=== PATIENT | female | born 1955 | race Two or more races ===

== ENCOUNTER 2019-03-18 09:11 | Inpatient (IN) | payer SELFPAY ==
[~2019-03-18] VITALS: Ht 152.4 cm; Wt 52.5 kg
[2019-03-18 10:08] LABS: Basophils # (auto) 0.1 uL; Basophils % (auto) 0.4 % (0.0-2.0); Eosinophils # (auto) 0 uL; Eosinophils % (auto) 0.1 % (0.0-7.0); Hematocrit 39.4 % (36.0-46.0); Hemoglobin 13.4 g/dL (12.2-16.2); Lymphocytes # (auto) 1.2 uL; Lymphocytes % (auto) 7.3 % (10.0-50.0); Mean Corpuscular Hemoglobin 30.3 pg (28.0-32.0); Mean Corpuscular Volume 89.1 fL (80.0-100.0); Monocytes # (auto) 1.1 uL; Monocytes % (auto) 7.2 % (0.0-12.0); Neutrophils # (auto) 13.5 uL; Nucleated Red Blood Cells % 0.1 %; Platelet Count (auto) 240 10^3/uL (140-450); Red Blood Cells 4.42 10^6/uL (4.0-5.20); Red Cell Distribution Width 14.4 % (11.8-14.3); White Blood Cell 15.9 10^3/uL (4.4-10.8)
[2019-03-18] MEDS ORDERED: SODIUM CHLORIDE 0.9% 1,000 ML IV ONE (10:22)
[2019-03-18 10:27] LABS: Albumin 3.3 g/dL (3.4-5.0); Anion Gap 10 (5-15); Blood Urea Nitrogen 16 mg/dL (7-18); Calcium 8.9 mg/dL (8.5-10.1); Carbon Dioxide 26 mmol/L (21-32); Chloride 101 mmol/L (98-107); Glucose 130 mg/dL (74-106); Potassium 3.8 mmol/L (3.5-5.1); Sodium 137 mmol/L (136-145)
[2019-03-18] MEDS ORDERED: ALBUTEROL SULF 2.5 MG/0.5ML(0.5%) NEB SOLN NEB ONE (10:30)
[2019-03-18] MEDS ORDERED: IPRATROPIUM BROM 0.5 MG/2.5ML INH SOL NEB ONE (10:30)
[2019-03-18] MEDS ORDERED: cefTRIAXone 1GM/50ML D5W 50 ML IV ONE (10:30)
[2019-03-18] MEDS ORDERED: methylPREDNISolone SOD SUCC 125 MG/2 ML VL IV ONE (10:30)
[2019-03-18 10:31] LABS: Alanine Aminotransferase 31 U/L (13-56); Alkaline Phosphatase 97 U/L (45-117); Aspartate Aminotransferase 28 U/L (15-37); BUN/Creatinine Ratio 25.8; Bilirubin, Total 0.3 mg/dL (0.2-1.0); GFR African American 125 mL/min; GFR Non-African American 103 mL/min; Total Protein 7.3 g/dL (6.4-8.2)
[2019-03-18] MEDS: SODIUM CHLORIDE 0.9% 1,000 ML IV SCH (11:20)
[2019-03-18] MEDS ORDERED: DEXTROSE (50%) 50ML SYRG IV PRN (11:30)
[2019-03-18] MEDS ORDERED: MORPHINE SULF INJ 2 MG/ML SYRINGE 1ML IV PRN (11:30)
[2019-03-18] MEDS ORDERED: ACETAMINOPHEN 500 MG TAB PO PRN (11:30)
[2019-03-18] MEDS: ACCU-CHEK COMFORT CURVE STRIP VI SCH ×3 (11:30→23:17)
[2019-03-18] MEDS ORDERED: NITROGLYCERIN 0.4 MG SL TAB SL PRN (11:30)
[2019-03-18] MEDS ORDERED: AZITHROMYCIN 500MG/ 250ML 250 ML IV ONE (11:30)
[2019-03-18] MEDS ORDERED: LACTULOSE 20Gm/30ML SOLN PO PRN (11:30)
[2019-03-18] MEDS ORDERED: PROMETHAZINE HCL 25 MG/ML 1ML IV PRN (11:30)
[2019-03-18] MEDS ORDERED: OSELTAMIVIR 75 MG CAP PO ONE (11:30)
[2019-03-18] MEDS ORDERED: TEMAZEPAM 15 MG CAP PO PRN (11:30)
[2019-03-18] MEDS ORDERED: ALBUTEROL SULF 2.5 MG/0.5ML(0.5%) NEB SOLN NEB PRN (11:30)
[2019-03-18] MEDS ORDERED: methylPREDNISolone SOD SUCC 40 MG/ML VL IV SCH (12:00)
[2019-03-18] MEDS: ALBUTEROL SULF 2.5 MG/0.5ML(0.5%) NEB SOLN NEB SCH ×2 (13:03→18:50)
[2019-03-18] MEDS: IPRATROPIUM BROM 0.5 MG/2.5ML INH SOL NEB SCH ×2 (13:03→18:50)
[2019-03-18] MEDS: ENOXAPARIN SOD 40 MG/0.4 ML SYRINGE SC SCH (13:10)
[2019-03-18] MEDS: methylPREDNISolone SOD SUCC 40 MG/ML VL IV SCH (18:21)
[2019-03-18] MEDS: traMADol HCL 50 MG TAB PO PRN (18:22)
[2019-03-18] MEDS ORDERED: NAPR220C PO (18:23)
[2019-03-18] MEDS ORDERED: ALBUAER3 IN (18:23)
[2019-03-18 21:46] VITALS: BP 123/71
[2019-03-18 22:00] VITALS: BP 120/73
[2019-03-18] MEDS: OSELTAMIVIR 75 MG CAP PO SCH (23:16)
[2019-03-18] MEDS: FAMOTIDINE 20 MG TAB PO SCH (23:18)
[2019-03-19] MEDS: IPRATROPIUM BROM 0.5 MG/2.5ML INH SOL NEB SCH ×4 (00:18→18:00)
[2019-03-19] MEDS: ALBUTEROL SULF 2.5 MG/0.5ML(0.5%) NEB SOLN NEB SCH ×4 (00:18→18:00)
[2019-03-19] MEDS: SODIUM CHLORIDE 0.9% 1,000 ML IV SCH ×3 (00:40→23:49)
[2019-03-19] MEDS: methylPREDNISolone SOD SUCC 40 MG/ML VL IV SCH ×5 (00:41→23:49)
[2019-03-19 05:56] VITALS: BP 123/73
[2019-03-19] MEDS: ACCU-CHEK COMFORT CURVE STRIP VI SCH ×4 (06:42→22:00)
[2019-03-19 07:35] LABS: Hematocrit 37.4 % (36.0-46.0); Hemoglobin 12.4 g/dL (12.2-16.2); Mean Corpuscular Hgb Conc. 33.2 g/dL (32.0-36.0); Mean Corpuscular Volume 90.2 fL (80.0-100.0); Platelet Count (auto) 263 10^3/uL (140-450); Red Blood Cells 4.14 10^6/uL (4.0-5.20); Red Cell Distribution Width 14.3 % (11.8-14.3); White Blood Cell 12.5 10^3/uL (4.4-10.8)
[2019-03-19 07:37] LABS: Basophils % (manual) 0 (0.0-2.0); Blast Cells 0; Eosinophils % (manual) 0 (0-7); Metamyelocytes % 0; Myelocytes % 0; Promyelocytes % 0
[2019-03-19 08:00] VITALS: BP 124/74
[2019-03-19 08:36] LABS: Band Neutrophils % (manual) 5; Lymphocytes % (manual) 5 (10.0-50.0); Monocytes % (manual) 4 (0-12); Reactive Lymphocytes 1
[2019-03-19] MEDS: OSELTAMIVIR 75 MG CAP PO SCH ×2 (09:02→22:35)
[2019-03-19] MEDS: FAMOTIDINE 20 MG TAB PO SCH ×2 (09:02→22:35)
[2019-03-19] MEDS: cefTRIAXone 1GM/50ML D5W 50 ML IV SCH (09:02)
[2019-03-19] MEDS: ENOXAPARIN SOD 40 MG/0.4 ML SYRINGE SC SCH (09:03)
[2019-03-19] MEDS: AZITHROMYCIN 500MG/ 250ML 250 ML IV SCH (11:36)
[2019-03-19 13:00] VITALS: BP 141/73
[2019-03-19 17:48] VITALS: BP 141/78
[2019-03-20] VITALS (8 sets, daily range): BP systolic 125–155; BP diastolic 76–86
[2019-03-20] MEDS: ALBUTEROL SULF 2.5 MG/0.5ML(0.5%) NEB SOLN NEB SCH ×4 (00:06→18:01)
[2019-03-20] MEDS: IPRATROPIUM BROM 0.5 MG/2.5ML INH SOL NEB SCH ×4 (00:06→18:02)
[2019-03-20] MEDS: methylPREDNISolone SOD SUCC 40 MG/ML VL IV SCH ×2 (06:00→22:19)
[2019-03-20] MEDS: ACCU-CHEK COMFORT CURVE STRIP VI SCH ×4 (06:37→22:20)
[2019-03-20] MEDS: cefTRIAXone 1GM/50ML D5W 50 ML IV SCH (09:31)
[2019-03-20] MEDS: AZITHROMYCIN 500MG/ 250ML 250 ML IV SCH (09:31)
[2019-03-20] MEDS: FAMOTIDINE 20 MG TAB PO SCH ×2 (09:31→22:19)
[2019-03-20] MEDS: ENOXAPARIN SOD 40 MG/0.4 ML SYRINGE SC SCH (09:31)
[2019-03-20] MEDS: traMADol HCL 50 MG TAB PO PRN (11:07)
[2019-03-20] MEDS: ACETYLCYSTEINE 10 %(100MG/ML) SOL 4ML NEB SCH (18:01)
[2019-03-20] MEDS: BUDESONIDE (INHALATION) 0.5 MG/2 ML NEB NEB SCH (18:02)
[2019-03-21] MEDS: ACETYLCYSTEINE 10 %(100MG/ML) SOL 4ML NEB SCH ×4 (00:05→18:09)
[2019-03-21] MEDS: IPRATROPIUM BROM 0.5 MG/2.5ML INH SOL NEB SCH ×4 (00:05→18:09)
[2019-03-21] MEDS: ALBUTEROL SULF 2.5 MG/0.5ML(0.5%) NEB SOLN NEB SCH ×4 (00:05→18:09)
[2019-03-21 05:12] VITALS: BP 137/83
[2019-03-21] MEDS: BUDESONIDE (INHALATION) 0.5 MG/2 ML NEB NEB SCH ×2 (06:27→18:09)
[2019-03-21] MEDS: ACCU-CHEK COMFORT CURVE STRIP VI SCH ×3 (06:37→17:00)
[2019-03-21 09:06] VITALS: BP 140/98
[2019-03-21] MEDS: FAMOTIDINE 20 MG TAB PO SCH ×2 (09:38→21:33)
[2019-03-21] MEDS: methylPREDNISolone SOD SUCC 40 MG/ML VL IV SCH ×2 (09:39→21:34)
[2019-03-21] MEDS: ENOXAPARIN SOD 40 MG/0.4 ML SYRINGE SC SCH (09:39)
[2019-03-21] MEDS: AZITHROMYCIN 250 MG TAB PO SCH (09:39)
[2019-03-21 13:00] VITALS: BP 132/76
[2019-03-21 17:06] VITALS: BP 155/22
[2019-03-21 21:14] VITALS: BP 155/22
[2019-03-21 22:00] VITALS: BP 135/71
[2019-03-22] MEDS: IPRATROPIUM BROM 0.5 MG/2.5ML INH SOL NEB SCH ×3 (00:34→12:11)
[2019-03-22] MEDS: ALBUTEROL SULF 2.5 MG/0.5ML(0.5%) NEB SOLN NEB SCH ×3 (00:35→12:11)
[2019-03-22] MEDS: ACETYLCYSTEINE 10 %(100MG/ML) SOL 4ML NEB SCH ×3 (00:35→12:12)
[2019-03-22 05:23] VITALS: BP 147/85
[2019-03-22] MEDS: BUDESONIDE (INHALATION) 0.5 MG/2 ML NEB NEB SCH (07:47)
[2019-03-22 08:39] VITALS: BP 143/80
[2019-03-22] MEDS: ENOXAPARIN SOD 40 MG/0.4 ML SYRINGE SC SCH (10:00)
[2019-03-22] MEDS ORDERED: IPRAAER6 IN (10:18)
[2019-03-22] MEDS ORDERED: FLUT110A INH (10:18)
[2019-03-22] MEDS ORDERED: FAM20T PO (10:21)
[2019-03-22] MEDS: AZITHROMYCIN 250 MG TAB PO SCH (11:28)
[2019-03-22] MEDS: FAMOTIDINE 20 MG TAB PO SCH (11:28)
[2019-03-22] MEDS: methylPREDNISolone SOD SUCC 40 MG/ML VL IV SCH (11:29)
[2019-03-22 13:00] VITALS: BP 145/87
[2019-03-22 17:00] VITALS: BP 144/90
== END 2019-03-22 18:10 | disposition home or self-care (01) | DRG 189 ==
LOC: ER 09:11 → TELE 09:12 → TELE-EAST 17:50 → EAST 03-20 13:12
PROVIDERS: ADMIT Internal Medicine; ATTEND Internal Medicine
DX: J96.00 Acute respiratory failure, unspecified whether with hypoxia or hypercapnia (principal); J44.1 Chronic obstructive pulmonary disease with (acute) exacerbation; E44.1 Mild protein-calorie malnutrition; Z80.1 Family history of malignant neoplasm of trachea, bronchus and lung; Z87.891 Personal history of nicotine dependence; Z99.81 Dependence on supplemental oxygen
CPT/HCPCS: 36415; 36600; 71045; 71046; 80053; 82805; 82962; 83036; 83605; 84484; 85007; 85025; 85027; 87040; 87804; 93005; 94640; 96365; 96367; 96375; 99291; G0378; J0696

== ENCOUNTER → 2021-01-24 | Outpatient (CLI) | payer BC ==
[~2021-01-24] MED LIST: ALBUAER3 IN; FAMO20TA10 PO; FLUT110A INH; IPRAAER6 IN; NAPR220C PO
[2021-01-24 11:06] LABS: Basophils # (auto) 0 10 ^3/uL (0-0.2); Basophils % (auto) 0.3 % (0.0-2.0); Eosinophils # (auto) 0 10 ^3/uL (0-0.8); Eosinophils % (auto) 0.4 % (0.0-7.0); Hematocrit 43.1 % (36.0-46.0); Hemoglobin 14.4 g/dL (12.2-16.2); Lymphocytes # (auto) 1.4 10 ^3/uL (0.4-5.4); Lymphocytes % (auto) 13.8 % (10.0-50.0); Mean Corpuscular Hgb Conc. 33.5 g/dL (32.0-36.0); Mean Corpuscular Volume 89.5 fL (80.0-100.0); Monocytes # (auto) 0.5 10 ^3/uL (0-1.3); Monocytes % (auto) 5.4 % (0.0-12.0); Neutrophils # (auto) 7.9 10 ^3/uL (1.6-8.6); Neutrophils % (auto) 80.1 % (37.0-80.0); Nucleated Red Blood Cells % 0.1 %; Red Blood Cells 4.82 10^6/uL (4.0-5.20); Red Cell Distribution Width 14.6 % (11.8-14.3); White Blood Cell 9.9 10^3/uL (4.4-10.8)
[2021-01-24 11:16] LABS: Albumin 4.2 g/dL (3.4-5.0); Calcium 9.7 mg/dL (8.5-10.1); Potassium 4.2 mmol/L (3.5-5.1)
[2021-01-24 11:23] LABS: BUN/Creatinine Ratio 28.6; Bilirubin, Total 0.6 mg/dL (0.2-1.0); Total Protein 7.5 g/dL (6.4-8.2)
[2021-01-24 11:25] LABS: Folate (Folic Acid) > 24.00 ng/mL (5.38-24)
== END | disposition home or self-care (01) ==
LOC: LAB 10:18
DX: I10 Essential (primary) hypertension (principal); E78.5 Hyperlipidemia, unspecified
CPT/HCPCS: 36415; 80053; 80061; 82306; 82607; 82746; 83036; 84443; 85025